=== PATIENT | male | born 1985 | race Caucasian/White ===

== ENCOUNTER → 2018-05-21 | Outpatient (CLI) | payer BC | LOC: HYPER 05-12 10:46 | DX: L89.892 Pressure ulcer of other site, stage 2 (principal); G82.50 Quadriplegia, unspecified; G90.4 Autonomic dysreflexia; Z86.718 Personal history of other venous thrombosis and embolism ==

== ENCOUNTER → 2018-06-04 | Outpatient (CLI) | payer BC | LOC: HYPER 06:45 | DX: L89.893 Pressure ulcer of other site, stage 3 (principal); G82.50 Quadriplegia, unspecified; G90.4 Autonomic dysreflexia; M77.9 Enthesopathy, unspecified; N39.0 Urinary tract infection, site not specified; Z79.01 Long term (current) use of anticoagulants; Z86.718 Personal history of other venous thrombosis and embolism ==

== ENCOUNTER → 2018-06-24 | Outpatient (CLI) | payer BC | LOC: HYPER 06:58 | DX: L89.893 Pressure ulcer of other site, stage 3 (principal); M77.9 Enthesopathy, unspecified; N39.0 Urinary tract infection, site not specified; G82.50 Quadriplegia, unspecified; G90.4 Autonomic dysreflexia; Z86.718 Personal history of other venous thrombosis and embolism; Z79.01 Long term (current) use of anticoagulants ==